=== PATIENT | male | born 1950 | race Caucasian/White ===

== ENCOUNTER 2017-11-30 08:11 | Emergency (ER) | payer OTHER, MEDICARE ==
[~2017-11-30] VITALS: Ht 177.8 cm; Wt 63.0 kg
[~2017-11-30 08:11] MED LIST: CHLO.12%30 SSP; NAPR-576 PO; PENI250T59 PO
[2017-11-30 08:22] VITALS: BP 154/72; PULSE 94; RESP 16; TEMP 97.9; O2SAT 97
[2017-11-30] MEDS ORDERED: TETANUS/DIPHTHERIA TOXOID ADULT 0.5 ML VIAL IM ONE (10:00)
[2017-11-30] MEDS ORDERED: IBUPROFEN 800 MG TAB PO ONE (10:00)
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
[2017-11-30] MEDS ORDERED: CYCL5TAB PO (10:21)
[2017-11-30] MEDS ORDERED: IBUP-232 PO (10:43)
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
== END 2017-11-30 11:00 | disposition home or self-care (01) ==
LOC: NEPK 08:11
DX: M25.562 Pain in left knee (principal); G44.309 Post-traumatic headache, unspecified, not intractable; V49.49XA Driver injured in collision with other motor vehicles in traffic accident, initial encounter; Z23 Encounter for immunization; Z72.0 Tobacco use
CPT/HCPCS: 73564; 90471; 90714